=== PATIENT | male | born 1980 | race Two or more races ===

== ENCOUNTER 2021-06-12 22:08 | Emergency (ER) | payer OTHER ==
[~2021-06-12] VITALS: Ht 175.3 cm; Wt 79.4 kg
[2021-06-12] MEDS ORDERED: LIDOCAINE 1%-EPI 1:100,000 20 ML VIAL ONE (22:28)
[2021-06-12 22:52] VITALS: BP 115/84
--- NOTE | 2021-06-12 23:00 | NUR ---
Patient discharged to home in stable condition. Written and verbal after care instructions given. Patient verbalizes understanding of instruction. Pt ambulatory with a steady gait
== END 2021-06-12 23:02 | disposition home or self-care (01) ==
LOC: ER 22:10
DX: S91.312A Laceration without foreign body, left foot, initial encounter (principal); W22.8XXA Striking against or struck by other objects, initial encounter; Y93.89 Activity, other specified; Y92.89 Other specified places as the place of occurrence of the external cause; Y99.8 Other external cause status
CPT/HCPCS: 12002; 99282; J3490

== ENCOUNTER 2021-08-17 14:56 | Emergency (ER) | payer OTHER ==
[~2021-08-17] VITALS: Ht 175.3 cm; Wt 77.1 kg
[2021-08-17 15:25] VITALS: BP 125/83
--- NOTE | 2021-08-17 15:25 | NUR ---
BILATERAL EYE, ITCHING AND DISCHARGE X 2 DAYS
[2021-08-17] MEDS ORDERED: ERYT3.5O9 EACHEYE ×2 (15:47→15:50)
--- NOTE | 2021-08-17 16:06 | NUR ---
Patient discharged to home in stable condition. Written and verbal after care instructions given. Patient verbalizes understanding of instruction.
== END 2021-08-17 16:06 | disposition home or self-care (01) ==
LOC: ER 15:33
DX: H10.33 Unspecified acute conjunctivitis, bilateral (principal); Z79.899 Other long term (current) drug therapy